=== PATIENT | male | born 1960 | race Two or more races ===

== ENCOUNTER 2018-03-19 07:30 | Inpatient (IN) | payer OTHER ==
[~2018-03-19] VITALS: Ht 182.9 cm; Wt 133.1 kg
[2018-03-19] VITALS (13 sets, daily range): BP systolic 104–140; BP diastolic 49–78
[2018-03-19] MEDS ORDERED: NEXIUM40 MG ORAL (09:38)
[2018-03-19] MEDS ORDERED: RAPAFLO8 MG ORAL (09:39)
[2018-03-19] MEDS ORDERED: MICARDIS20 MG ORAL (09:39)
[2018-03-19] MEDS ORDERED: ZOLPIDEM TART12.5 MG ORAL (09:40)
[2018-03-19] MEDS ORDERED: EPINEPHrine 1mg/1ml Amp ONE (10:03)
[2018-03-19] MEDS ORDERED: Vancomycin 1gm inj IVPB ONE (10:03)
[2018-03-19] MEDS ORDERED: Thrombin 5000 units spray kit TOPIC ONE ×2 (10:04→17:33)
[2018-03-19] MEDS ORDERED: Thrombin 5000 units TOPIC ONE (10:04)
[2018-03-19] MEDS ORDERED: Lidocaine 1% 10mg/ml/EPI 0.01mg/ml 50ml INJ ONE (10:05)
[2018-03-19] MEDS ORDERED: Bupivacaine 0.5% Inj 30 ml vial INJ ONE ×2 (10:05→16:54)
[2018-03-19] MEDS ORDERED: Bacitracin 50000 Units Vial ONE (10:05)
[2018-03-19] MEDS ORDERED: Gelfoam Absorbable 1gm powder pkt TOPIC ONE ×2 (10:05→17:33)
[2018-03-19] MEDS ORDERED: Zemuron 50mg/5ml Inj IV ONE ×2 (10:10→15:47)
[2018-03-19] MEDS ORDERED: LR 1000ml 1,000 ML IVLG SCH (10:29)
[2018-03-19] MEDS ORDERED: Ketorolac 30mg Inj IV PRN ×4 (10:30→18:00)
[2018-03-19] MEDS ORDERED: Midazolam 2mg/2ml Inj IVP PRN ×2 (10:30→18:00)
[2018-03-19] MEDS ORDERED: Hydromorphone 0.5mg/0.5ml inj IVP PRN ×2 (10:30→18:00)
[2018-03-19] MEDS ORDERED: DiphenhydrAMINE 50mg/ml Inj IVP PRN ×2 (10:30→18:00)
[2018-03-19] MEDS ORDERED: HYDROcodone/Acetamin 7.5/325 tab ORAL PRN ×4 (10:30→18:00)
[2018-03-19] MEDS ORDERED: Norco 5mg/325mg tab ORAL PRN ×3 (10:30→18:00)
[2018-03-19] MEDS ORDERED: Labetalol 5mg/ml 20ml vial IV PRN ×2 (10:30→18:00)
[2018-03-19] MEDS ORDERED: Atropine Inj 1mg/10ml Syr IV PRN ×2 (10:30→18:00)
[2018-03-19] MEDS ORDERED: oxyCODONE HCL/Acetaminophen 5/325mg ORAL PRN ×2 (10:30→18:00)
[2018-03-19] MEDS ORDERED: Metoclopramide 10mg/2ml Inj IVP PRN ×2 (10:30→18:00)
[2018-03-19] MEDS ORDERED: LORazepam Inj 2mg/ml 1ml IV PRN ×2 (10:30→18:00)
[2018-03-19] MEDS ORDERED: Acetaminophen (Non formulary) 100 ML IV ONE (10:30)
[2018-03-19] MEDS ORDERED: fentaNYL 100 mcg/2 mL IV PRN ×2 (10:30→18:00)
[2018-03-19] MEDS ORDERED: Heparin 5000 units/ml inj ONE (10:30)
--- NOTE | 2018-03-19 10:34 | Anethesia Preoperative Eval ---
Anesthesia Pre-op PMH/ROS General Date of Evaluation: Mar 19, 2018 Time of Evaluation: 11:01 Anesthesiologist: Sury ASA Score: ASA 3 Mallampati Score Class I : Soft palate, uvula, fauces, pillars visible Class II: Soft palate, uvula, fauces visible Class III: Soft palate, base of uvula visible Class IV: Only hard plate visible Mallampati Classification: Class III Surgeon: Sales Diagnosis: Back Pain Surgical Procedure: ALIF L4-5, PLIF L4-S1 Anesthesia History: none Social History: current smoker Family History: no anesthesia problems Allergies: Coded Allergies: No Known Allergies (Unverified , 03/16/18) Medications: see eMAR Past Medical History Cardiovascular: Reports: HTN Gastrointestinal/Genitourinary: Reports: GERD, other - BPH Other: obesity - BMI 41 PSxH Narrative: Septoplasty, R Knee Sx, Bilateral Rotator Cuff SX Anesthesia Pre-op Phys. Exam Physician Exam Last Vital Signs Date Time Temp Pulse Resp B/P (MAP) Pulse Ox O2 Delivery O2 Flow Rate FiO2 03/19/18 09:06 98.5 76 18 135/78 94 Room Air 98.5 Constitutional: NAD Neurologic: CN 2-12 intact Cardiovascular: RRR Respiratory: CTA Gastrointestinal: S/NT/ND Airway Exam Mallampati Score: Class III MO: limited ROM: limited Teeth: missing, intact Dentures: upper Anesthesia Pre-op A/P Risk Assessment & Plan Assessment: ASA 3 Plan: GA, BIS, GlideScope Status Change Before Surgery: No Pre-Antibiotics Dru Grams Ancef IV Given Within 1 Hr of Incision: Yes Time Given: 11:16 Everardo Ga MD Mar 19, 2018 10:34
--- NOTE | 2018-03-19 10:35 | Immediate Post-Op Evaluation ---
Immediate Post-Op Evalulation Immediate Post-Op Evalulation Procedure: ALIF L4-5, PLIF L4-S1 Date of Evaluation: Mar 19, 2018 Time of Evaluation: 19:05 IV Fluids: 2000 LR Blood Products: 0 Estimated Blood Loss: 200 Urinary Output: 400 Blood Pressure Systolic: 138 Blood Pressure Diastolic: 55 Pulse Rate: 104 Respiratory Rate: 18 O2 Sat by Pulse Oximetry: 92 Temperature (Fahrenheit): 98.7 Pain Score (1-10): 2 Nausea: No Vomiting: No Complications 0 Patient Status: awake, reacts, patent, extubated, none Hydration Status: adequate Dru Grams Ancef IV Given Within 1 Hr of Incision: Yes Time Given: 11:16 Everardo Ga MD Mar 19, 2018 10:35
[2018-03-19] MEDS ORDERED: Lidocaine 1% Plain 30 ml INJ ONE ×4 (10:36→17:23)
[2018-03-19] MEDS ORDERED: Sodium Chloride 10ml vial INJ ONE ×3 (10:37→11:56)
[2018-03-19] MEDS ORDERED: Lidocaine 1% MPF 10mg/ml 5ml ONE (10:37)
[2018-03-19] MEDS ORDERED: Dexamethasone 4mg/ml vial ONE (10:37)
[2018-03-19] MEDS ORDERED: fentaNYL 100 mcg/2 mL IV ONE ×3 (10:43→15:28)
--- NOTE | 2018-03-19 10:56 | Pre-Procedure Note/Attestation ---
Pre-Procedure Note/Attestation Complete Prior to Procedure Planned Procedure: bilateral Procedure Narrative: Anterior lumbar interbody fusion lumbar 4-5 and Lumbar 5-sacral 1, posterior lumbar fusion and decompression lumbar 4-5 and lumbar 5-sacral 1 Indications for Procedure Pre-Operative Diagnosis: Spondylolisthesis and lumbar stenosis with radiculopathy L4-5 and L5-S1 Attestation I attest that I discussed the nature of the procedure; its benefits; risks and complications; and alternatives (and the risks and benefits of such alternatives ), prior to the procedure, with the patient (or the patient's legal client service representative). I attest that, if there was a reasonable possibility of needing a blood transfusion, the patient (or the patient's legal client service representative) was given the [place] Department [employer] standardized written summary, pursuant to the [place] [employer] Blood Safety Act ([place] Health and Safety Code # 1645, as amended). I attest that I re-evaluated the patient just prior to the surgery and that there has been no change in the patient's H&P, except as documented below: Cas Sales M.D. Mar 19, 2018 10:56
[2018-03-19] MEDS ORDERED: ePHEDrine 50mg/ml Inj ONE ×2 (11:38→12:44)
[2018-03-19] MEDS ORDERED: Ketamine 500mg Inj ONE (13:27)
[2018-03-19] MEDS ORDERED: Milk of Magnesia 30ml Ud ORAL PRN (14:15)
[2018-03-19] MEDS ORDERED: traMADol 50mg tab ORAL PRN (14:15)
[2018-03-19] MEDS ORDERED: oxyCODONE 5mg IR tab ORAL PRN (14:15)
[2018-03-19] MEDS ORDERED: Propofol 200mg/20ml IV ONE ×2 (15:39→17:23)
[2018-03-19] MEDS ORDERED: BSS 15ml BTL ONE (16:42)
[2018-03-19] MEDS: Docusate 100mg cap ORAL SCH (18:00)
[2018-03-19] MEDS ORDERED: Neostigmine 1mg/ml 10ml Inj ONE (18:05)
[2018-03-19] MEDS ORDERED: Glycopyrrolate 0.2mg/ml 1ml Vial ONE (18:06)
--- NOTE | 2018-03-19 19:11 | Brief Operative Note ---
Immediate Post Operative Note Operative Note Pre-op Diagnosis: Spondylolisthesis and lumbar stenosis with radiculopathy L4-5 and L5-S1 Procedure: L4-5 and L5-S1 anterior lumbar interbody fusion, L4-5 and L5-S1 posterior spinal fusion, L4-5 bilateral laminoforaminotomy Post-op Diagnosis: same as pre-op Surgeon: Cas Sales Pst Manager: Joe Driver Anesthesiologist: Dr Juan Anesthesia: general Specimen: yes Complications: none Condition: stable Fluids: See anesthesia records Estimated Blood Loss: volume - 200 Drains: none Implant(s) used?: Yes - Synthes pedicle screws and Synfix cages Cas Sales M.D. Mar 19, 2018 19:11
[2018-03-19 20:10] LABS: HEMATOCRIT 41.3 % (42.0-52.0); HEMOGLOBIN 14.6 G/DL (14.2-18.0); MEAN CORPUSCULAR VOLUME 89 FL (80-99); PLATELET COUNT 225 K/UL (150-450); RED BLOOD COUNT 4.64 M/UL (4.70-6.10); WHITE BLOOD COUNT 20.6 K/UL (4.8-10.8)
[2018-03-19] MEDS ORDERED: Morphine Sulfate 2mg/ml Inj IVP PRN (21:45)
[2018-03-19] MEDS ORDERED: D5 1/2NS 1,000 ML IV ONE (22:00)
[2018-03-19] MEDS: ceFAZolin sod 1 GM in D5W 110 ML IV SCH (22:10)
[2018-03-19] MEDS ORDERED: PCA Morphine 1mg/ml 30 ML IV PRN (23:00)
[2018-03-19] MEDS ORDERED: Morphine Sulfate 4mg/ml Inj IV PRN (23:00)
[2018-03-19] MEDS ORDERED: Morphine Sulfate 4mg/ml Inj IVP PRN (23:00)
[2018-03-19] MEDS ORDERED: Rate Change PCA 1 Each MISC PRN (23:00)
[2018-03-19] MEDS ORDERED: Naloxone 0.4mg/ml Inj IVP PRN (23:00)
[2018-03-19] MEDS ORDERED: PCA Education Pamphlet MISC ONE (23:00)
[2018-03-20] VITALS: BP 135/75
[2018-03-20 04:00] VITALS: BP 139/75
[2018-03-20] MEDS: ceFAZolin sod 1 GM in D5W 110 ML IV SCH ×2 (05:26→13:50)
[2018-03-20 06:24] LABS: BASOPHILS % (AUTO) 0.4 % (0.0-2.0); EOSINOPHILS % (AUTO) 0.1 % (0.0-3.0); HEMATOCRIT 41.3 % (42.0-52.0); HEMOGLOBIN 14.1 G/DL (14.2-18.0); LYMPHOCYTES % (AUTO) 10.2 % (20.0-45.0); MEAN CORPUSCULAR VOLUME 91 FL (80-99); MONOCYTES % (AUTO) 14.6 % (1.0-10.0); NEUTROPHILS % (AUTO) 74.8 % (45.0-75.0); PLATELET COUNT 229 K/UL (150-450); RED BLOOD COUNT 4.56 M/UL (4.70-6.10); WHITE BLOOD COUNT 17.8 K/UL (4.8-10.8)
[2018-03-20 06:57] LABS: ALANINE AMINOTRANSFERASE 66 U/L (12-78); ALBUMIN 3.4 G/DL (3.4-5.0); ALBUMIN/GLOBULIN RATIO 1.1 (1.0-2.7); ALKALINE PHOSPHATASE 46 U/L (46-116); ANION GAP 9 mmol/L (5-15); ASPARTATE AMINO TRANSFERASE 84 U/L (15-37); BILIRUBIN,TOTAL 0.6 MG/DL (0.2-1.0); BLOOD UREA NITROGEN 26 mg/dL (7-18); CALCIUM 8.5 MG/DL (8.5-10.1); CARBON DIOXIDE 27 MMOL/L (21-32); CHLORIDE 97 MMOL/L (98-107); CREATININE 1.6 MG/DL (0.55-1.30); POTASSIUM 4.3 MMOL/L (3.5-5.1); SODIUM 133 MMOL/L (136-145)
--- NOTE | 2018-03-20 06:59 | Cardiology Progress Note ---
Assessment/Plan Assessment/Plan full note dictated await chem results dvt ppx with pneumoatic stocking PT/OT as ordered by dr logan pain mangment hold anithypertensive meds advance diet as per dr logan full note dicated [id number] Objective Last 24 Hour Vital Signs Date Time Temp Pulse Resp B/P (MAP) Pulse Ox O2 Delivery O2 Flow Rate FiO2 03/20/18 04:00 98.2 99 18 139/75 97 Nasal Cannula 3.0 98.2 03/20/18 04:00 18 03/20/18 00:45 18 03/20/18 00:15 18 03/20/18 00:00 98.2 88 18 135/75 98 Nasal Cannula 3.0 98.2 03/19/18 23:45 18 03/19/18 23:30 19 03/19/18 23:30 98.2 94 19 134/73 98 Nasal Cannula 3.0 98.2 03/19/18 23:15 20 03/19/18 23:00 20 03/19/18 23:00 97.3 91 20 140/73 97 Nasal Cannula 3.0 97.3 03/19/18 21:26 Nasal Cannula 2.0 28 03/19/18 21:26 94 Nasal Cannula 3.0 32 03/19/18 20:40 98.8 91 20 114/68 95 Nasal Cannula 3.0 98.8 03/19/18 20:30 98.6 94 16 113/49 96 Nasal Cannula 3 98.6 03/19/18 20:18 98.6 96 16 104/56 96 Nasal Cannula 3 98.6 03/19/18 20:07 96 16 118/58 96 Nasal Cannula 3 03/19/18 19:41 92 16 110/67 95 Nasal Cannula 3 03/19/18 19:30 97 16 140/67 92 Nasal Cannula 3 03/19/18 19:15 98 16 115/67 98 Nasal Cannula 3 03/19/18 19:05 106 16 138/57 92 Simple Mask 10 03/19/18 19:00 100 16 138/57 92 Simple Mask 10 03/19/18 18:55 209.7 104 18 92 03/19/18 18:54 98.7 106 16 138/57 92 Simple Mask 10 98.7 03/19/18 09:06 98.5 76 18 135/78 94 Room Air 98.5 Intake and Output 03/19/18 03/20/18 19:00 07:00 Intake Total 2000 ml 1505 ml Output Total 600 ml 1100 ml Balance 1400 ml 405 ml Intake Oral 480 ml IV Total 2000 ml 1025 ml Output Urine Total 400 ml 1100 ml Estimated Blood Loss 200 ml # Voids 1 Laboratory Tests Test 03/19/18 19:55 03/20/18 05:05 White Blood Count 20.6 K/UL (4.8-10.8) H 17.8 K/UL (4.8-10.8) H Red Blood Count 4.64 M/UL (4.70-6.10) L 4.56 M/UL (4.70-6.10) L Hemoglobin 14.6 G/DL (14.2-18.0) 14.1 G/DL (14.2-18.0) L Hematocrit 41.3 % (42.0-52.0) L 41.3 % (42.0-52.0) L Mean Corpuscular Volume 89 FL (80-99) 91 FL (80-99) Mean Corpuscular Hemoglobin 31.5 PG (27.0-31.0) H 30.9 PG (27.0-31.0) Mean Corpuscular Hemoglobin Concent 35.4 G/DL (32.0-36.0) 34.0 G/DL (32.0-36.0) Red Cell Distribution Width 12.0 % (11.6-14.8) 12.0 % (11.6-14.8) Platelet Count 225 K/UL (150-450) 229 K/UL (150-450) Mean Platelet Volume 8.2 FL (6.5-10.1) 7.9 FL (6.5-10.1) Neutrophils (%) (Auto) % (45.0-75.0) 74.8 % (45.0-75.0) Lymphocytes (%) (Auto) % (20.0-45.0) 10.2 % (20.0-45.0) L Monocytes (%) (Auto) % (1.0-10.0) 14.6 % (1.0-10.0) H Eosinophils (%) (Auto) % (0.0-3.0) 0.1 % (0.0-3.0) Basophils (%) (Auto) % (0.0-2.0) 0.4 % (0.0-2.0) Differential Total Cells Counted 100 Neutrophils % (Manual) 79 % (45-75) H Lymphocytes % (Manual) 7 % (20-45) L Monocytes % (Manual) 9 % (1-10) Eosinophils % (Manual) 0 % (0-3) Basophils % (Manual) 0 % (0-2) Band Neutrophils 5 % (0-8) Platelet Estimate Adequate Platelet Morphology Normal Red Blood Cell Morphology Normal Sodium Level Pending Potassium Level Pending Chloride Level Pending Carbon Dioxide Level Pending Blood Urea Nitrogen Pending Creatinine Pending Estimat Glomerular Filtration Rate Pending Glucose Level Pending Calcium Level Pending Total Bilirubin Pending Aspartate Amino Transf (AST/SGOT) Pending Alanine Aminotransferase (ALT/SGPT) Pending Alkaline Phosphatase Pending Total Protein Pending Albumin Pending Globulin Pending Ramírez Dillon MD Mar 20, 2018 06:59
[2018-03-20] MEDS ORDERED: Zolpidem 5mg tab ORAL PRN (07:00)
[2018-03-20] MEDS ORDERED: PCA shift volume MISC SCH (07:00)
[2018-03-20] MEDS ORDERED: Isovue-300 100ml vial INJ PRN (07:00)
--- NOTE | 2018-03-20 07:13 | Orthopedic Spine Progress Note ---
Ortho Spine - Progress Note Subjective Symptoms: c/o post-op back pain Additional Comments: Has not walked yet. Complains of a lot of LBP and some abd bloating. Drank water last night. Objective Vital Signs: Last 24 Hour Vital Signs Date Time Temp Pulse Resp B/P (MAP) Pulse Ox O2 Delivery O2 Flow Rate FiO2 03/20/18 04:00 98.2 99 18 139/75 97 Nasal Cannula 3.0 98.2 03/20/18 04:00 18 03/20/18 00:45 18 03/20/18 00:15 18 03/20/18 00:00 98.2 88 18 135/75 98 Nasal Cannula 3.0 98.2 03/19/18 23:45 18 03/19/18 23:30 19 03/19/18 23:30 98.2 94 19 134/73 98 Nasal Cannula 3.0 98.2 03/19/18 23:15 20 03/19/18 23:00 20 03/19/18 23:00 97.3 91 20 140/73 97 Nasal Cannula 3.0 97.3 03/19/18 21:26 Nasal Cannula 2.0 28 03/19/18 21:26 94 Nasal Cannula 3.0 32 03/19/18 20:40 98.8 91 20 114/68 95 Nasal Cannula 3.0 98.8 03/19/18 20:30 98.6 94 16 113/49 96 Nasal Cannula 3 98.6 03/19/18 20:18 98.6 96 16 104/56 96 Nasal Cannula 3 98.6 03/19/18 20:07 96 16 118/58 96 Nasal Cannula 3 03/19/18 19:41 92 16 110/67 95 Nasal Cannula 3 03/19/18 19:30 97 16 140/67 92 Nasal Cannula 3 03/19/18 19:15 98 16 115/67 98 Nasal Cannula 3 03/19/18 19:05 106 16 138/57 92 Simple Mask 10 03/19/18 19:00 100 16 138/57 92 Simple Mask 10 03/19/18 18:55 209.7 104 18 92 03/19/18 18:54 98.7 106 16 138/57 92 Simple Mask 10 98.7 03/19/18 09:06 98.5 76 18 135/78 94 Room Air 98.5 I&O: Intake and Output 03/19/18 03/20/18 19:00 07:00 Intake Total 2000 ml 1505 ml Output Total 600 ml 1100 ml Balance 1400 ml 405 ml Intake Oral 480 ml IV Total 2000 ml 1025 ml Output Urine Total 400 ml 1100 ml Estimated Blood Loss 200 ml # Voids 1 Wound: other - Posterior dressing Saturated, new dry dressing placed. Anterior abd incision c/d/i, abdomen distended but soft. Drains: none Neuro Status: normal Additional Comments: Legs feel good, neuro intact 5/5 IP/Q/TA/EHL; sensation intact to lite touch L1- S1 dermatomes Assessment Post-op Diagnosis: L4-5 spondylolisthesis, radiculopathy, stenosis Procedure Performed: L4-5 and L5-S1 anterior lumbar interbody fusion, L4-5 and L5-S1 posterior spinal fusion, L4-5 bilateral laminoforaminotomy Plan Plan: PT, pain management, continue antibiotics, imaging Additional Comments: CT Urogram per recommendation of vascular surgeon Dr Murphy to verify ureteral function. Cas Sales M.D. Mar 20, 2018 07:12
[2018-03-20] MEDS: Tamsulosin 0.4mg cap ORAL SCH ×2 (08:23→18:39)
[2018-03-20] MEDS: HYDROmorphone 1mg/ml Carpuject IVP PRN ×4 (08:24→16:37)
[2018-03-20] MEDS: Docusate 100mg cap ORAL SCH ×2 (09:00→18:39)
[2018-03-20] MEDS ORDERED: NS Irrig 1000ml ONE (11:00)
[2018-03-20] MEDS ORDERED: Sterile Water Irrig 1000ml IRRIG ONE (11:00)
[2018-03-20] MEDS ORDERED: LR 1000ml ONE (11:00)
[2018-03-20 12:00] VITALS: BP 119/54
--- NOTE | 2018-03-20 13:30 | Operative Note - Dictated ---
DATE OF OPERATION: 03/19/2018 PREOPERATIVE DIAGNOSES: 1. L4-L5 grade II spondylolisthesis. 2. Severe bilateral lateral recess stenosis L4-L5. 3. Degenerative disk disease L5-S1. 4. Lumbar radiculopathy bilateral L5 and S1. POSTOPERATIVE DIAGNOSES: 1. L4-L5 grade II spondylolisthesis. 2. Severe bilateral lateral recess stenosis L4-L5. 3. Degenerative disk disease L5-S1. 4. Lumbar radiculopathy bilateral L5 and S1. OPERATIONS PERFORMED: 1. Anterior lumbar diskectomy and interbody fusion L4-L5. 2. Anterior lumbar interbody fusion L5-S1. 3. Use of Synthes SynFix interbody cage for interbody fusion L4-L5 and L5-S1. 4. Posterior spinal fusion with instrumentation L4 through S1 using Synthes 01:35 pedicle screws from L4 through S1. 5. Bilateral laminal foraminotomy L4-L5. SURGEON: Cas Sales M.D. DOOR CLOSER SURGEON: Joe Driver M.D. ANESTHESIOLOGIST: Everardo Ga M.D. ANESTHESIA TYPE: General endotracheal anesthesia. PROCEDURE IN DETAIL: The patient was brought to the operating room, intubated on the operating room table by anesthesia in the supine position. Vascular Surgeon, Dr. Willy Murphy performed anterior retroperitoneal exposure to the L4-L5 and L5-S1 disk spaces and this will be dictated separately. Prior to incision, a time-out procedure was performed. IV antibiotics were given and the abdomen was prepped and draped in the usual manner. After exposure to the L4-L5 disk space by Vascular Surgery, an annulotomy was performed at L4-L5 level. Diskectomy was performed and then intervertebral spreaders were inserted and distracted. Diskectomy was then completed and high speed bur was used to denude the end-plates in the remaining cartilage. Trial was then performed with Synthes SynFix interbody cage and a 17 mm tall of 14 degrees of lordosis was selected and this cage was filled with half of the 03:54 kit and cancellous allograft bone chips. This cage was under lateral fluoroscopic imaging and four screws were used to fix the cage to the L4 and L5 vertebral bodies after 04:12 was used. Vascular Surgery then exposed the L5-S1 level and annulotomy was then made at L5-S1 disk space. Diskectomy was then performed partially and then intervertebral spreaders were inserted and the disc space was distracted. Diskectomy was completed and a high speed bur was used to denude the remaining cartilage from the end-plate. Trial was then performed with Synthes SynFix interbody cage and an 18-degree lordotic 17 mm anterior height was and filled with remaining 04:57 sponge and the allograft bone and this was inserted in place under lateral fluoroscopic imaging. Final AP and lateral x-rays demonstrated acceptable placement and the wound was then irrigated and closed in layers by Vascular Surgery. The patient was then turned prone on to 05:19 type table and fluoroscopic imaging was performed to localize through the L4-L5 and S1 pedicles. Stab incisions were made bilaterally and Jamshidi needles were used to cannulate the pedicles bilateral at L4 and guidewires were inserted. Lateral fluoroscopic imaging confirmed depth of the guidewire and then the tissue was dilated and head holes were tapped and Synthes 7 mm diameter x 15 mm long screws were inserted at L4-L5 pedicles bilaterally. We then moved on to L5 pedicle where by the right side was cannulated, tapped and pedicle screw was inserted. The screw was left out on the left side because cannulation was exceedingly difficult because of the hypertrophied facet. Stab incision was then made bilaterally for the S1 pedicles, which were cannulated with Jamshidi needle and guidewires were inserted and the pedicles were tapped and screws were inserted bilaterally. Final AP and lateral x-rays were taken and demonstrated optimal placement of all screws. Rods were then contoured and inserted in a subfascial 07:20 manner and pushed down into the using the reducers. Set screws were then inserted and found tightened and it was irrigated and closed in layers using #1 Vicryl and #2-0 Vicryl. A midline spinal incision was made over the L4-L5 level and high speed bur was used to perform laminotomy at this level. This level was severely stenotic and a large amount of hypertrophied ligamentum and residual steroid injection was 08:29 at this point and the lateral edge of the dura was identified. Laminal foraminotomy was completed and the lateral recess and exiting and traversing nerve roots were decompressed bilaterally. This was later irrigated. Hemostasis was achieved impart with FloSeal. Thus wound was closed using #1, 2-0 Vicryl, and running 4-0 PDS. The patient was then awoken and brought to the recovery room in stable condition. EBL for the entire surgery was approximately 150 mL and there were no changes in the neuromonitoring from baseline. Cas Sales M.D. DR: KAREN JOB#: [id number] CC:
--- NOTE | 2018-03-20 13:55 | 48 Hour Post Anesthesia Eval ---
Post Anesthesia Evaluation Procedure: ALIF L4-5, PLIF L4-S1 Date of Evaluation: Mar 20, 2018 Time of Evaluation: 13:54 Blood Pressure Systolic: 138 0: 72 Pulse Rate: 76 Respiratory Rate: 22 Temperature (Fahrenheit): 97.5 O2 Sat by Pulse Oximetry: 98 Airway: patent Nausea: No Vomiting: No Pain Intensity: 4 Hydration Status: adequate Cardiopulmonary Status: stable Mental Status/LOC: patient returned to baseline Follow-up Care/Observations: n/a Post-Anesthesia Complications: none Follow-up care needed: N/A Kristian Montoya MD Mar 20, 2018 13:55
--- NOTE | 2018-03-20 14:45 | Consultation ---
DATE OF CONSULTATION: 03/20/2018 CARDIOLOGY CONSULTATION CONSULTING PHYSICIAN: Ramírez Dillon M.D. REFERRING PHYSICIAN: Cas Sales M.D. REASON FOR REFERRAL: Postoperative medical care. HISTORY OF PRESENT ILLNESS: This is a middle-aged gentleman, who was admitted, has undergone lumbar spine surgery by Dr. Sales and I have been asked to follow up 00:31__ postoperatively. The patient is seen today postop day #1. The patient does not have any chest pain or shortness of breath. No PND. No orthopnea. No palpitations. Basically, his main complaint is abdominal pain postoperatively and the fact that he has dry throat, dry mouth, and dry lips. PAST MEDICAL HISTORY: Positive for history of hypertension, benign prostatic hypertrophy. He has had history of surgery previously on his right knee and rotator cuff tear repair on both shoulders apparently. FAMILY HISTORY: Mother and father both . SOCIAL HISTORY: He smokes five or six cigarettes per day. ALLERGIES: He has no known drug allergies. MEDICATIONS: His medications at home include vitamin D, Micardis 20 mg two tablets daily, divalproex 01:23 mg daily, Wellbutrin SR 150 mg twice daily, and Ambien 6.25 mg at nighttime. REVIEW OF SYSTEMS: GASTROINTESTINAL: Does not have any nausea or vomiting. He has not had any bowel movement or passing gas. GENITOURINARY: He has a Tineo catheter in place. NEUROLOGIC: The patient denies any numbness or tingling sensation in his legs. PHYSICAL EXAMINATION: GENERAL: Shows to be obese middle-aged gentleman, in no respiratory distress, laying flat. NECK: Supple. No jugular venous distention. LUNGS: Anteriorly into the side appear to be clear. CARDIAC: Regular rate and rhythm. There is a systolic murmur that is noted. There is no RV lifts, heaves, or thrills noted. ABDOMEN: Obese. There is no guarding, no rigidity, no rebound. Surgical dressing in the lower part of the abdomen suprapubic area vertical, the dressing appears to be clean and dry. EXTREMITIES: He does have no edema, no clubbing or cyanosis. He has pneumatic compression stockings in place. He is able to move all four extremities on command. He is unable to effectively roll over or turn because of significant pain that he is experiencing. ASSESSMENT: 1. Spondylolisthesis with lumbar stenosis with radiculopathy L4-L5 and L5-S1. 2. Obesity. 3. Hypertension. 4. Benign prostatic hypertrophy history. 5. Tobacco use disorder. PLAN: This patient was seen in cardiac consultation. The patient is doing relatively well. He does have expected postoperative pain. He has had some laboratories drawn this morning. The results of which show white count of 03:11__, hemoglobin 14.1, and platelet count of 229. He has chemistry panel that is pending at this time. The patient is hemodynamically stable postoperatively with blood pressures in the 130s range with heart rates anywhere between 80s to 90s, temperature 98.2. He is doing relatively well. Postoperatively, he does have expected pain and needed to be seen by pain management if uncontrolled. His preop labs were reviewed. His EKG looks nonspecific T-wave changes on the resting EKG. He has had a chest x-ray preoperatively that showed no evidence of acute cardiopulmonary disease process and his preop labs were significant only for blood sugar of 185, not sure if that was done fasting or not. Nevertheless, the coags were negative. The nursing staff called me with results of his blood test today. He would have expected postoperative therapy with physical therapy, occupational therapy as ordered by Dr. Sales. Diet will be advanced to clears as per Dr. Sales's recommendation. Await results of his renal function to see if any further need for imaging as was discussed with Dr. Sales is necessary. The patient is making urine at this time and his hemoglobin compared to preop has really not that significantly decreased. Incentive spirometry to be used. Pneumatic compression stockings used for DVT prophylaxis at the present time. His usual medications will be resumed especially his psychotropic medications, although I would probably hold off on antihypertensive for the time being and resume as become necessary. Ramírez Dillon M.D. DR: SARWAT JOB#: [id number] CC:
[2018-03-20 16:00] VITALS: BP 144/60
[2018-03-20] MEDS: oxyCODONE 5mg IR tab ORAL PRN (18:39)
[2018-03-20] MEDS: HYDROmorphone 4mg tab ORAL PRN (19:58)
[2018-03-20 20:40] VITALS: BP 90/55
[2018-03-21 00:05] VITALS: BP 94/52
[2018-03-21] MEDS: HYDROmorphone 4mg tab ORAL PRN (00:12)
[2018-03-21] MEDS: HYDROmorphone 1mg/ml Carpuject SUBQ PRN ×3 (01:22→07:56)
[2018-03-21] MEDS: oxyCODONE 5mg IR tab ORAL PRN (03:09)
[2018-03-21 04:00] VITALS: BP 98/64
--- NOTE | 2018-03-21 05:15 | Operative Note - Dictated ---
DATE OF OPERATION: 03/19/2018 NOTE: POOR AUDIO DICTATING PHYSICIAN: Willy Murphy M.D. VASCULAR SURGEON: Willy Murphy M.D. SPINE SURGEON: . PREOPERATIVE DIAGNOSIS: Degenerative disc disease. POSTOPERATIVE DIAGNOSIS: Degenerative disc disease. PROCEDURE: 1. Anterior retroperitoneal exposure of L4-L5, vertebral interspace. 2. Anterior retroperitoneal exposure of L5-S1, vertebral interspace. INDICATIONS: This is a very pleasant gentleman, who was seen prior to surgery. He has been scheduled for anterior fusion at L4-L5 and L5-S1. He is overweight with large abdominal pannus. He was carefully explained the need for a longer incision for exposure of L4-L5 and L5-S1, the increased risk of vascular injury due to the size as well as possibly deep venous thrombosis were all explicitly discussed. DESCRIPTION OF FINDINGS: A low vertical midline incision was used. A left retroperitoneal approach was used. There is no peritoneal or ureteral violation. There is no vascular injury. Exposure of L5-S1 was obtained below the iliac bifurcation with retraction of left common iliac artery and vein superiorly and laterally. An exposure of L4-L5 was obtained above the iliac bifurcation with retraction of left common iliac vessels towards the patient's right. Fluoroscopy was used to confirm both levels. On completion, the peritoneum and ureter were intact. The iliac vessels were intact. The ureter was also carefully visualized. However, due to the patient's size, it was somewhat difficult to completely course of the ureter all the way proximally and distally; however, it was grossly intact on visualization, it has been protected during the exposure as well. Blood loss was approximately 150 mL . DESCRIPTION OF PROCEDURE: The patient was taken to the operative room, general anesthesia was used. Antibiotics were given. The patient's abdomen was prepped and draped. Proper time-out procedures were taken. A low vertical midline incision made infraumbilically. The anterior fascia was incised longitudinally midline. A plane identified posterior to the left rectus abdominis developed posterolaterally to the patient's left. The retroperitoneal space entered below the arcuate line. The peritoneum and ureter mobilized towards the patient's right exposing the left common iliac artery and vein. Dissection was carried left common iliac artery and vein overlying lymphatics were ligated with vascular clips and divided and and this allowed us to retract the left common iliac vessels superiorly and laterally. Dissection was then carried out above the iliac bifurcation and the overlying ligated with vascular clips. The iliolumbar vein was identified and encircled using a 2-0 silk tie and then triply ligated proximally and distally with vascular clips. L4 segmental artery and vein were also identified and ligated with vascular clips and divided. This allowed us to retract the left common iliac artery and vein towards the patient's right exposing anterior surface to the L4-L5. Instrumentation was performed at L4-L5 first after fluoroscopy used to confirm the appropriate level and then after instrumentation at L4-L5 performed retracted and repositioned below the iliac bifurcation and L5-S1 was exposed. During the final screw insertion, there was some concern that there was soft tissue wrapping around the screwdriver and carefully . There was some concern that the ureter was involved and this was carefully visualized, had good peristalsis above and below the area of concern and therefore at this point, I do not feel that there was an injury to the ureter at this time. However, we will carefully expose this postoperatively with imaging and treat accordingly. There was no evidence of any extravasation or bleeding upon completion of the procedure. The patient tolerated the procedure well and no intraoperative complications. Willy Murphy M.D. DR: NITA JOB#: [id number] CC:
--- NOTE | 2018-03-21 06:34 | Orthopedic Spine Progress Note ---
Ortho Spine - Progress Note Subjective Additional Comments: Low back pain and abdominal pain finally improved this morning on new pain medication regimen, much happier this morning. Still not passing gas and was not given suppository yet. Tineo out, is voiding. Has walked the halls twice, legs feel strong and without pain. Objective Vital Signs: Last 24 Hour Vital Signs Date Time Temp Pulse Resp B/P (MAP) Pulse Ox O2 Delivery O2 Flow Rate FiO2 03/21/18 04:00 98.4 99 18 98/64 95 Nasal Cannula 3.0 98.4 03/21/18 00:05 98.9 107 20 94/52 93 98.9 03/20/18 20:40 99.2 105 20 90/55 94 99.2 03/20/18 20:00 Nasal Cannula 2.0 28 03/20/18 17:28 97.5 03/20/18 17:01 97.5 03/20/18 17:01 97.5 03/20/18 16:37 97.5 03/20/18 16:02 97.5 03/20/18 16:00 98.4 62 18 144/60 96 Room Air 98.4 03/20/18 13:55 207.5 76 22 98 03/20/18 13:49 98.1 03/20/18 13:28 18 03/20/18 12:00 18 03/20/18 12:00 98.1 92 18 119/54 96 Room Air 98.1 03/20/18 11:05 98.2 03/20/18 08:24 98.2 03/20/18 08:00 20 I&O: Intake and Output 03/20/18 03/21/18 19:00 07:00 Intake Total 1960 ml Output Total 1100 ml Balance 860 ml Intake Oral 1400 ml IV Total 560 ml Output Urine Total 1100 ml Wound: clean, dry, intact Drains: none Neuro Status: normal Assessment Post-op Diagnosis: L4-5 spondylolisthesis, radiculopathy, stenosis Procedure Performed: L4-5 and L5-S1 anterior lumbar interbody fusion, L4-5 and L5-S1 posterior spinal fusion, L4-5 bilateral laminoforaminotomy Plan Plan: PT, pain management, d/c antibiotics, discharge plan Additional Comments: Dulcolax suppository. Continue current pain medication regimen. DC planning for ARU once has return of bowel function Cas Sales M.D. Mar 21, 2018 06:34
--- NOTE | 2018-03-21 07:13 | Cardiology Progress Note ---
Assessment/Plan Assessment/Plan 1. Spondylolisthesis with lumbar stenosis with radiculopathy L4-L5 and L5-S1. 2. Obesity. 3. Hypertension. 4. Benign prostatic hypertrophy history. 5. Tobacco use disorder. 6. Post op pain doing better not happy about his pain control until this am no bm yet ct was not performed yest as he was in too much pain to move hopefully get done this am dulcolax to be given this am lab this am pendig bp on lower side will bolus with ns and keep on ivf until starts pos and isable to tolerate po has already walked dvt ppx with pneumonatic stocking in place d/w rn Subjective Cardiovascular: Denies: chest pain, lightheadedness, palpitations Respiratory: Denies: shortness of breath Gastrointestinal/Abdominal: Reports: abdominal pain Genitourinary: Denies: burning Objective Last 24 Hour Vital Signs Date Time Temp Pulse Resp B/P (MAP) Pulse Ox O2 Delivery O2 Flow Rate FiO2 03/21/18 04:00 98.4 99 18 98/64 95 Nasal Cannula 3.0 98.4 03/21/18 00:05 98.9 107 20 94/52 93 98.9 03/20/18 20:40 99.2 105 20 90/55 94 99.2 03/20/18 20:00 Nasal Cannula 2.0 28 03/20/18 17:28 97.5 03/20/18 17:01 97.5 03/20/18 17:01 97.5 03/20/18 16:37 97.5 03/20/18 16:02 97.5 03/20/18 16:00 98.4 62 18 144/60 96 Room Air 98.4 03/20/18 13:55 207.5 76 22 98 03/20/18 13:49 98.1 03/20/18 13:28 18 03/20/18 12:00 18 03/20/18 12:00 98.1 92 18 119/54 96 Room Air 98.1 03/20/18 11:05 98.2 03/20/18 08:24 98.2 03/20/18 08:00 20 General Appearance: no apparent distress, alert, obese Neck: no JVD Cardiovascular: normal rate, regular rhythm Respiratory/Chest: lungs clear Abdomen: normal bowel sounds, non tender, soft Extremities: no swelling Intake and Output 03/20/18 03/21/18 19:00 07:00 Intake Total 1960 ml 600 ml Output Total 1100 ml 1050 ml Balance 860 ml -450 ml Intake Oral 1400 ml 600 ml IV Total 560 ml Output Urine Total 1100 ml 1050 ml Ramírez Dillon MD Mar 21, 2018 07:13
[2018-03-21] MEDS ORDERED: Sodium Chloride 500ML 500 ML IV ONE (07:15)
[2018-03-21 08:00] VITALS: BP 108/66
[2018-03-21] MEDS: Tamsulosin 0.4mg cap ORAL SCH ×2 (08:31→18:42)
[2018-03-21] MEDS: Docusate 100mg cap ORAL SCH ×2 (08:32→18:42)
[2018-03-21 08:40] LABS: HEMATOCRIT 36.1 % (42.0-52.0); HEMOGLOBIN 12.8 G/DL (14.2-18.0); MEAN CORPUSCULAR VOLUME 90 FL (80-99); PLATELET COUNT 191 K/UL (150-450); RED BLOOD COUNT 4.01 M/UL (4.70-6.10); RED CELL DISTRIBUTION WIDTH 11.6 % (11.6-14.8); WHITE BLOOD COUNT 18.3 K/UL (4.8-10.8)
[2018-03-21 09:25] LABS: ALANINE AMINOTRANSFERASE 72 U/L (12-78); ALBUMIN 3.3 G/DL (3.4-5.0); ALKALINE PHOSPHATASE 46 U/L (46-116); ANION GAP 9 mmol/L (5-15); ASPARTATE AMINO TRANSFERASE 114 U/L (15-37); BILIRUBIN,TOTAL 1.1 MG/DL (0.2-1.0); BLOOD UREA NITROGEN 29 mg/dL (7-18); CALCIUM 8.1 MG/DL (8.5-10.1); CARBON DIOXIDE 27 MMOL/L (21-32); CHLORIDE 92 MMOL/L (98-107); CREATININE 1.6 MG/DL (0.55-1.30); POTASSIUM 4.2 MMOL/L (3.5-5.1); SODIUM 128 MMOL/L (136-145)
[2018-03-21] MEDS ORDERED: Milk of Magnesia 30ml Ud ORAL SCH (10:30)
[2018-03-21] MEDS: HYDROmorphone 4mg tab ORAL SCH ×4 (10:38→21:30)
[2018-03-21 12:00] VITALS: BP 103/57
--- NOTE | 2018-03-21 14:00 | Diagnostic Imaging Report ---
Indication: Pain, intraoperative Technique: Intraoperative images. Total fluoroscopy time 93 seconds. Total dose 99.35 mGy Comparison: none Findings: Intraoperative images demonstrate initially surgical tool projecting anterior to the L3 vertebral body, and a needle projected at the level of the L4-5 disc. Subsequent images document placement of anterior fusion hardware at L4-5 and L5-S1, with disc spacers. Subsequent images document posterior fusion of L4-S1. Impression: Intraoperative imaging, as described
[2018-03-21 16:00] VITALS: BP 110/68
--- NOTE | 2018-03-21 16:43 | Diagnostic Imaging Report ---
Indication: Chest and abdominal pain Technique: Continuous helical transaxial imaging of the abdomen and pelvis was obtained from the lung bases to the pubic symphysis during intravenous contrast administration. Coronal 2-D reformats were also obtained. Study obtained in a Siemens sensation [address] Automatic Exposure Control was utilized. Total Dose length Product (DLP): [address] Dose Index Volume (CTDIvol): 25.39, 8.1, 64.89, 21.91, 25.81, 25.81 mGy Comparison: None Findings: The liver is low in attenuation consistent with fatty infiltration. The lung bases show some minimal basal atelectasis. There is questionable nodularity of the liver surface. Spleen is mildly prominent. There is no nephrolithiasis. No hydronephrosis appreciated. Streak artifact from lumbar hardware limit evaluation. A small amount of air noted in the abdominal wall in the left flank involving transversus abdominis/oblique muscles with soft tissue stranding in the left pelvic sidewall and presacral region. There is a trace focus of air in the area of the umbilicus. It appears patient has had recent abdominal surgery with air in the posterior paraspinous region and within the surgical bed of the lumbar spine with hardware that includes pedicle screws and fusion rods L4-S1 as well as a anterior fixation device within the L4-S1 levels. There is no compelling evidence for abscess. Urinary bladder is unremarkable. IMPRESSION: Postsurgical changes associated with relatively recent lower lumbar laminectomy and fusion as described above. Left lower anterior approach noted as discussed above. No evidence of abscess. Fatty liver. Query chronic liver disease given nodularity of the liver surface. Mild atherosclerotic disease. Mild basal atelectasis The CT scanner at [facility] is accredited by the [employer] and the scans are performed using protocols designed to limit radiation exposure to as low as reasonably achievable to attain images of sufficient resolution adequate for diagnostic evaluation.
[2018-03-21] MEDS ORDERED: Ketorolac 30mg Inj IM SCH (18:09)
[2018-03-21] MEDS: oxyCONTIN 10mg tab ORAL SCH (18:44)
[2018-03-21 20:00] VITALS: BP 105/70
[2018-03-22] VITALS: BP 93/49
[2018-03-22] MEDS: HYDROmorphone 4mg tab ORAL SCH ×3 (01:01→08:16)
[2018-03-22 04:00] VITALS: BP 103/49
--- NOTE | 2018-03-22 06:19 | Orthopedic Spine Progress Note ---
Ortho Spine - Progress Note Subjective Symptoms: c/o post-op back pain Additional Comments: Doing much better today on current pain medication regimen. He is walking and getting in and out of bed on his own. Has been voiding. Has been passing gas and is hungry, asking for food. He now thinks he is better off going home today. Objective Vital Signs: Last 24 Hour Vital Signs Date Time Temp Pulse Resp B/P (MAP) Pulse Ox O2 Delivery O2 Flow Rate FiO2 03/22/18 04:00 98.2 83 20 103/49 90 Room Air 98.2 03/22/18 00:00 98.1 73 20 93/49 94 Room Air 98.1 03/21/18 21:10 Nasal Cannula 2.0 28 03/21/18 20:00 98.9 98 20 105/70 96 Room Air 98.9 03/21/18 18:44 98.6 03/21/18 16:00 98.6 92 18 110/68 97 Room Air 98.6 03/21/18 15:56 98.3 03/21/18 15:56 98.3 03/21/18 15:55 98.3 03/21/18 14:58 98.3 03/21/18 13:25 98.3 03/21/18 12:00 98.8 84 20 103/57 96 Nasal Cannula 3.0 98.8 03/21/18 10:38 98.3 03/21/18 08:00 98.3 94 18 108/66 96 Nasal Cannula 3.0 98.3 03/21/18 07:56 98.4 03/21/18 07:30 98.3 03/21/18 07:30 98.3 I&O: Intake and Output 03/21/18 03/22/18 19:00 07:00 Intake Total 1275 ml Balance 1275 ml IV Total 1275 ml # Voids 4 Wound: clean Drains: none Neuro Status: normal Assessment Post-op Diagnosis: L4-5 spondylolisthesis, radiculopathy, stenosis Procedure Performed: L4-5 and L5-S1 anterior lumbar interbody fusion, L4-5 and L5-S1 posterior spinal fusion, L4-5 bilateral laminoforaminotomy Plan Plan: discharge to home Additional Comments: DC home on current regimen: Dilaudid 4mg PO Q4hr Oxycontin 10 TID Percocet 10 Q4hr Colace Movantik Follow up with me in 2 weeks DC instructions discussed in length with the patient and he understands Cas aSles M.D. Mar 22, 2018 06:19
[2018-03-22 06:29] LABS: BASOPHILS % (AUTO) 0.5 % (0.0-2.0); EOSINOPHILS % (AUTO) 0.2 % (0.0-3.0); HEMATOCRIT 31.8 % (42.0-52.0); HEMOGLOBIN 11.1 G/DL (14.2-18.0); LYMPHOCYTES % (AUTO) 12.1 % (20.0-45.0); MEAN CORPUSCULAR VOLUME 89 FL (80-99); MONOCYTES % (AUTO) 14.1 % (1.0-10.0); NEUTROPHILS % (AUTO) 73.1 % (45.0-75.0); PLATELET COUNT 164 K/UL (150-450); RED BLOOD COUNT 3.57 M/UL (4.70-6.10); RED CELL DISTRIBUTION WIDTH 11.3 % (11.6-14.8)
[2018-03-22 06:36] LABS: ALANINE AMINOTRANSFERASE 59 U/L (12-78); ALBUMIN 2.8 G/DL (3.4-5.0); ALBUMIN/GLOBULIN RATIO 0.9 (1.0-2.7); ALKALINE PHOSPHATASE 40 U/L (46-116); ANION GAP 7 mmol/L (5-15); ASPARTATE AMINO TRANSFERASE 102 U/L (15-37); BILIRUBIN,TOTAL 0.9 MG/DL (0.2-1.0); BLOOD UREA NITROGEN 28 mg/dL (7-18); CARBON DIOXIDE 27 MMOL/L (21-32); CHLORIDE 95 MMOL/L (98-107); CREATININE 1.2 MG/DL (0.55-1.30); POTASSIUM 3.9 MMOL/L (3.5-5.1); SODIUM 129 MMOL/L (136-145)
[2018-03-22 07:37] VITALS: BP 125/66
[2018-03-22] MEDS: Docusate 100mg cap ORAL SCH (08:15)
[2018-03-22] MEDS: Tamsulosin 0.4mg cap ORAL SCH (08:15)
[2018-03-22] MEDS: oxyCONTIN 10mg tab ORAL SCH (08:16)
[2018-03-22] MEDS ORDERED: HYDROMORPHONE HC4 M1 PO (08:44)
[2018-03-22] MEDS ORDERED: OXYCONTIN10 MG ORAL (08:45)
[2018-03-22] MEDS ORDERED: PERCOCET 10-321 EACH ORAL (08:45)
[2018-03-22] MEDS ORDERED: COLACE100 MG ORAL (08:46)
[2018-03-22] MEDS ORDERED: MOVANTIK25 MG PO (08:47)
--- NOTE | 2018-03-23 05:30 | Discharge Summary ---
Discharge Summary Discharge Summary _ DATE OF ADMISSION: 03/19/2018 DATE OF DISCHARGE: 03/22/2018 CO-SURGEON: Dr. Willy Murphy CONSULTANTS: Dr. Ramírez Dillon BRIEF HOSPITAL COURSE: Patient is a 58-year-old male, diagnosed with L4-L5 grade 2 spondylolisthesis, severe bilateral lateral recess stenosis L4-L5, degenerative disc disease L5-S1 , and lumbar radiculopathy on bilateral L5-S1 was admitted on 03/19/2018 and underwent L4-L5 and L5-S1 anterior lumbar interbody fusion, L4-L5 and L5-S1 posterior spinal fusion and L4-L5 bilateral laminoforaminotomy assisted by Dr. Willy Murphy performing the anterior retroperitoneal exposure of L4-L5 and L5-S1 vertebral interspace. He tolerated procedure well. Postoperatively, he was given pain management. He complained of a lot of pain and abdominal bloating, pain medications were adjusted. He was encouraged use of incentive spirometer and was placed on SCD's for DVT prophylaxis. He was followed by [place]. Antihypertensives were placed on hold. BP was on the low side, he was given IV hydration. BP eventually improved. He initially had difficulty urinating, plans for CT urogram to check patency of ureters, however test was not performed as patient was in too much pain. Urine function eventually returned, Tineo was removed and was voiding freely. He was on ambulating well with physical therapy safely and independently. He was tolerating diet well and had good pain control. He was eventually discharged home. FINAL DIAGNOSES: 1. L4-L5 grade 2 spondylolisthesis 2. Severe bilateral lateral recess stenosis L4-L5 3. Degenerative disc disease L5-S1 4. Lumbar radiculopathy bilateral L5 and S1 OPERATIONS PERFORMED: 1. Anterior lumbar discectomy and interbody fusion L4-L5 2. Anterior lumbar interbody fusion L5-S1 3. Bilateral laminal foraminotomy L4-L5 (Referred to operative report) DISPOSITION: Patient was discharged home. DISCHARGE MEDICATIONS: Refer to Discharge Medication List. DISCHARGE INSTRUCTIONS: Follow up in a week. I have been assigned to dictate discharge summary on this account, and I was not involved in the patient's management. Taty Diaz NP Mar 23, 2018 05:30
== END 2018-03-22 12:15 | disposition home or self-care (01) | DRG 455 ==
LOC: SDSOVERFLO 08:20 → 3E 14:09
PROC: 0SG00A0 Fusion of Lumbar Vertebral Joint with Interbody Fusion Device, Anterior Approach, Anterior Column, Open Approach (ICD-10-PCS; principal; 2018-03-19 11:00)
PROC: 0SG30A0 Fusion of Lumbosacral Joint with Interbody Fusion Device, Anterior Approach, Anterior Column, Open Approach (ICD-10-PCS; principal; 2018-03-19 11:00)
PROC: 0ST20ZZ Resection of Lumbar Vertebral Disc, Open Approach (ICD-10-PCS; principal; 2018-03-19 11:00)
PROC: 0SG30J1 Fusion of Lumbosacral Joint with Synthetic Substitute, Posterior Approach, Posterior Column, Open Approach (ICD-10-PCS; principal; 2018-03-19 11:00)
PROC: 0SG00J1 Fusion of Lumbar Vertebral Joint with Synthetic Substitute, Posterior Approach, Posterior Column, Open Approach (ICD-10-PCS; principal; 2018-03-19 11:00)
DX: M51.17 Intervertebral disc disorders with radiculopathy, lumbosacral region (principal); M43.16 Spondylolisthesis, lumbar region; M48.061 Spinal stenosis, lumbar region without neurogenic claudication; I10 Essential (primary) hypertension; N40.0 Benign prostatic hyperplasia without lower urinary tract symptoms; E66.9 Obesity, unspecified; Z68.39 Body mass index [BMI] 39.0-39.9, adult; Z72.0 Tobacco use; M79.2 Neuralgia and neuritis, unspecified
CPT/HCPCS: 36415; 72020; 74178; 76001; 80053; 82248; 85007; 85025; 87081; 94003; 94150; 94760; J2405; J2710